=== PATIENT | female | born 1965 | race Caucasian/White ===

== ENCOUNTER 2016-12-30 16:09 | Emergency (ER) | payer OTHER ==
[~2016-12-30 16:09] MED LIST: ESTRADIOL2 MG OR; ESTRING2 MG VA; FLEX PO; GLUCOPHAGE1000 MG PO; GLUCPH PO; GYNODIOL2 MG PO; HYOMAX-FT0.125 MG PO; KADIAN10 MG PO; KADIANSR30 PO; KLONO2 PO; LEVAQUIN750 MG PO; LORT7 PO; NEUR400 PO; NEUR600 PO; NEUR800 PO; OXYCOD PO; P10 PO; PAX10 PO; PAX20 PO; PR12.5 PO; PR25 PO; PRAV10 PO; PRAVAC PO; PRILO PO; PRIN2.5 PO; PRIN5 PO; PROVHFA INH; RESTORIL30 MG PO; SYMBICORT 160/41 INH INH; VENTOLIN HFA INH; WELL100 PO
== END 2016-12-30 16:15 | disposition home or self-care (01) ==
LOC: ER 16:09
DX: R51 Headache (principal); F17.200 Nicotine dependence, unspecified, uncomplicated; Z88.8 Allergy status to other drugs, medicaments and biological substances; Z79.899 Other long term (current) drug therapy
CPT/HCPCS: 96372; 99283; A9270-GY; J0780; J1200